=== PATIENT | male | born 1995 | race Caucasian/White ===

== ENCOUNTER 2021-05-18 16:46 | Inpatient (IN) | payer OTHER ==
[2021-05-18 20:50] VITALS: BMI 22.6
[2021-05-18] MEDS ORDERED: MAG HYDROX/AL HYDROX/SIMETH 30 ML UNIT-DOSE CUP PO PRN ×2 (21:31→23:02)
[2021-05-18] MEDS ORDERED: MAGNESIUM CITRATE 300 ML BOTTLE PO PRN ×2 (21:31→23:02)
[2021-05-18] MEDS ORDERED: MAGNESIUM HYDROX 2400MG/30ML ORAL SUSPENSION 30 ML CUP PO PRN ×2 (21:31→23:02)
[2021-05-18] MEDS ORDERED: P-EPHED 60MG/TRIPROLIDI 2.5MG TABLET PO PRN ×2 (21:31→23:02)
[2021-05-18] MEDS ORDERED: ACETAMINOPHEN 325 MG TABLET (FP) PO PRN ×3 (21:31→23:02)
[2021-05-18] MEDS ORDERED: hydrOXYzine PAMOATE 25 MG CAPSULE (FP) PO PRN (21:31)
[2021-05-18] MEDS ORDERED: IBUPROFEN 400 MG TABLET (FP) PO PRN ×2 (21:31→23:02)
[2021-05-18] MEDS ORDERED: BISMUTH SUBSALICYLATE 524 MG/30 ML PO PRN (21:31)
[2021-05-18] MEDS ORDERED: ONDANSETRON *ODT* 4 MG TABLET SL PRN (21:31)
[2021-05-18] MEDS ORDERED: MENTHOL/PHENOL 1 EACH UD MM PRN (21:31)
[2021-05-18] MEDS ORDERED: guaiFENesin 200 MG/10 ML 10 ML UNIT-DOSE CUPS PO PRN ×2 (21:31→23:02)
[2021-05-18] MEDS ORDERED: METHOCARBAMOL 500 MG TABLET PO PRN (21:31)
[2021-05-18] MEDS ORDERED: NICOTINE 10 MG CARTRIDGE (INHALER) IH PRN ×2 (21:31→23:02)
[2021-05-18] MEDS ORDERED: MELATONIN 5 MG TABLETS PO SCH (22:00)
[2021-05-18] MEDS ORDERED: THIAMINE HCL 100 MG TABLET (FP) PO SCH (22:00)
[2021-05-18] MEDS ORDERED: LOPERAMIDE HCL 2 MG CAPSULE PO PRN (23:02)
[2021-05-19] MEDS ORDERED: TUBERCULIN PPD 5 TU/0.1ML VIAL ID ONE ×2 (03:50→08:27)
[2021-05-19 07:22] VITALS: BP 111/75; PULSE 82; TEMP 97.6
[2021-05-19] MEDS: MELATONIN 5 MG TABLETS PO SCH ×2 (07:22→22:20)
[2021-05-19] MEDS ORDERED: PRENATAL VITAMINS W/ FOLIC ACID TABLET (FP) PO SCH (10:00)
[2021-05-19] MEDS: NICOTINE 14 MG/24 HOURS TOPICAL PATCH TD SCH (10:37)
[2021-05-19] MEDS: PRENATAL VITAMINS W/ FOLIC ACID TABLET (FP) PO SCH (10:38)
[2021-05-19 15:23] LABS: ALBUMIN 3.2 g/dl (3.4-5.0); BLOOD UREA NITROGEN 11.5 mg/dL (7-18)
[2021-05-19 15:24] LABS: CALCIUM 8.3 mg/dL (8.5-10.1)
[2021-05-19 15:25] LABS: BILIRUBIN,TOTAL 0.2 mg/dL (0.2-1); TOT PROT 7.1 g/dl (6.4-8.2)
[2021-05-19 15:26] LABS: CREATININE 0.7 mg/dL (0.55-1.3)
[2021-05-19 15:33] LABS: HEMATOCRIT 38.2 % (35.4-49); HEMOGLOBIN 13.4 GM/dL (11.7-16.9); MCH 33.2 pg (25.7-33.7); MEAN CELL VOLUME 94.7 fl (80-96); MEAN PLT VOLUME 9.4 fl (7.5-11.1); PLATELET COUNT 205 10^3/uL (134-434); RBC 4.04 M/mm3 (4.00-5.60); WHITE BLOOD COUNT 5.7 K/mm3 (4.0-10.0)
[2021-05-19] MEDS: THIAMINE HCL 100 MG TABLET (FP) PO SCH (22:20)
[2021-05-19] MEDS: DIVALPROEX SODIUM 250 MG TABLET E.C. PO SCH (22:20)
[2021-05-20] MEDS: DIVALPROEX SODIUM 250 MG TABLET E.C. PO SCH (11:28)
[2021-05-20] MEDS: ARIPiprazole 5 MG TABLET PO SCH (11:28)
[2021-05-20] MEDS: NICOTINE 14 MG/24 HOURS TOPICAL PATCH TD SCH (11:28)
[2021-05-20] MEDS: PRENATAL VITAMINS W/ FOLIC ACID TABLET (FP) PO SCH (11:29)
[2021-05-21] MEDS: THIAMINE HCL 100 MG TABLET (FP) PO SCH (00:47)
[2021-05-21] MEDS: MELATONIN 5 MG TABLETS PO SCH (00:47)
[2021-05-21] MEDS: DIVALPROEX SODIUM 250 MG TABLET E.C. PO SCH ×2 (00:47→11:16)
[2021-05-21] MEDS: PRENATAL VITAMINS W/ FOLIC ACID TABLET (FP) PO SCH (11:16)
[2021-05-21] MEDS: ARIPiprazole 5 MG TABLET PO SCH (11:16)
[2021-05-21] MEDS: NICOTINE 14 MG/24 HOURS TOPICAL PATCH TD SCH (11:16)
[2021-05-21] MEDS ORDERED: BICTEGRAV/EMTRICIT/TENOFOV (BIKTARVY) 50-200-25 MG TABLET PO SCH (12:00)
== END 2021-05-21 14:40 | disposition left against medical advice (07) | DRG 770 ==
LOC: YASAS 16:46 → Y5N 05-19 02:26
PROVIDERS: ADMIT Allergy & Immunology; ATTEND Allergy & Immunology
PROC: HZ42ZZZ Group Counseling for Substance Abuse Treatment, Cognitive-Behavioral (ICD-10-PCS; principal; 2021-05-19)
DX: F10.20 Alcohol dependence, uncomplicated (principal); F15.20 Other stimulant dependence, uncomplicated; F12.20 Cannabis dependence, uncomplicated; F25.9 Schizoaffective disorder, unspecified; F19.24 Other psychoactive substance dependence with psychoactive substance-induced mood disorder; F90.9 Attention-deficit hyperactivity disorder, unspecified type; F64.0 Transsexualism; Z21 Asymptomatic human immunodeficiency virus [HIV] infection status; G47.00 Insomnia, unspecified; Z86.19 Personal history of other infectious and parasitic diseases; Z91.14 Patient's other noncompliance with medication regimen; Z59.0 Homelessness
CPT/HCPCS: 36415; 80053; 85027; 93005; 93010; C9803; U0003; U0005

== ENCOUNTER 2021-08-31 09:12 | Inpatient (IN) | payer OTHER ==
[2021-08-31] MEDS ORDERED: ONDANSETRON *ODT* 4 MG TABLET SL PRN (09:42)
[2021-08-31] MEDS ORDERED: MAG HYDROX/AL HYDROX/SIMETH 30 ML UNIT-DOSE CUP PO PRN (09:42)
[2021-08-31] MEDS ORDERED: BISMUTH SUBSALICYLATE 262 MG/15 ML BTL PO PRN (09:42)
[2021-08-31] MEDS ORDERED: MAGNESIUM HYDROX 2400MG/30ML ORAL SUSPENSION 30 ML CUP PO PRN (09:42)
[2021-08-31] MEDS ORDERED: METHOCARBAMOL 500 MG TABLET PO PRN (09:42)
[2021-08-31] MEDS ORDERED: ACETAMINOPHEN 325 MG TABLET (FP) PO PRN ×2 (09:42)
[2021-08-31] MEDS ORDERED: IBUPROFEN 400 MG TABLET (FP) PO PRN (09:42)
[2021-08-31] MEDS ORDERED: MAGNESIUM CITRATE 300 ML BOTTLE PO PRN (09:42)
[2021-08-31] MEDS ORDERED: MENTHOL/PHENOL 1 EACH UD MM PRN (09:42)
[2021-08-31] MEDS ORDERED: NICOTINE 10 MG CARTRIDGE (INHALER) IH PRN (09:42)
[2021-08-31] MEDS ORDERED: chlordiazePOXIDE HCL 25 MG CAPSULE PO PRN (09:42)
[2021-08-31 09:53] VITALS: BMI 23.3
[2021-08-31] MEDS: chlordiazePOXIDE HCL 25 MG CAPSULE PO SCH ×3 (10:54→22:51)
[2021-08-31] MEDS: PRENATAL VITAMINS W/ FOLIC ACID TABLET (FP) PO SCH (10:55)
[2021-08-31] MEDS: hydrOXYzine PAMOATE 25 MG CAPSULE (FP) PO SCH ×4 (10:55→22:53)
[2021-08-31 13:31] LABS: HEMATOCRIT 38.6 % (35.4-49); HEMOGLOBIN 13.5 GM/dL (11.7-16.9); MCH 33.7 pg (25.7-33.7); MCHC 35.1 g/dl (32.0-35.9); MEAN CELL VOLUME 96.2 fl (80-96); MEAN PLT VOLUME 8.8 fl (7.5-11.1); PLATELET COUNT 214 10^3/uL (134-434); RBC 4.01 M/mm3 (4.00-5.60); RDW 13.2 % (11.9-15.9); WHITE BLOOD COUNT 3.8 K/mm3 (4.0-10.0)
[2021-08-31 13:49] LABS: ALBUMIN 3.6 g/dl (3.4-5.0); CALCIUM 8.7 mg/dL (8.5-10.1)
[2021-08-31 13:50] LABS: BLOOD UREA NITROGEN 8.4 mg/dL (7-18)
[2021-08-31 13:52] LABS: TOT PROT 7.6 g/dl (6.4-8.2)
[2021-08-31 13:55] LABS: BILIRUBIN,TOTAL 0.6 mg/dL (0.2-1)
[2021-08-31] MEDS: DIVALPROEX SODIUM 250 MG TABLET E.C. PO SCH (22:51)
[2021-08-31] MEDS: MELATONIN 5 MG TABLETS PO SCH (22:51)
[2021-08-31] MEDS: THIAMINE HCL 100 MG TABLET (FP) PO SCH (22:51)
[2021-09-01] MEDS: chlordiazePOXIDE HCL 25 MG CAPSULE PO SCH ×4 (07:41→22:05)
[2021-09-01] MEDS: hydrOXYzine PAMOATE 25 MG CAPSULE (FP) PO SCH ×5 (07:41→22:05)
[2021-09-01] MEDS ORDERED: BICTEGRAV/EMTRICIT/TENOFOV (BIKTARVY) 50-200-25 MG TABLET PO SCH (10:00)
[2021-09-01] MEDS: ARIPiprazole 5 MG TABLET PO SCH (10:49)
[2021-09-01] MEDS: DIVALPROEX SODIUM 250 MG TABLET E.C. PO SCH ×2 (10:49→22:05)
[2021-09-01] MEDS: PRENATAL VITAMINS W/ FOLIC ACID TABLET (FP) PO SCH (10:49)
[2021-09-01] MEDS: BICTEGRAV/EMTRICIT/TENOFOV (BIKTARVY) 50-200-25 MG TABLET PO SCH (18:25)
[2021-09-01] MEDS: MELATONIN 5 MG TABLETS PO SCH (22:05)
[2021-09-01] MEDS: THIAMINE HCL 100 MG TABLET (FP) PO SCH (22:05)
[2021-09-02] MEDS: chlordiazePOXIDE HCL 25 MG CAPSULE PO SCH ×4 (05:26→22:04)
[2021-09-02] MEDS: hydrOXYzine PAMOATE 25 MG CAPSULE (FP) PO SCH ×5 (05:26→22:03)
[2021-09-02] MEDS: DIVALPROEX SODIUM 250 MG TABLET E.C. PO SCH ×2 (10:40→22:03)
[2021-09-02] MEDS: ARIPiprazole 5 MG TABLET PO SCH (10:42)
[2021-09-02] MEDS: PRENATAL VITAMINS W/ FOLIC ACID TABLET (FP) PO SCH (10:42)
[2021-09-02] MEDS: BICTEGRAV/EMTRICIT/TENOFOV (BIKTARVY) 50-200-25 MG TABLET PO SCH (10:43)
[2021-09-02] MEDS ORDERED: BICTEGRAV/EMTRICIT/TENOFOV (BIKTARVY) 50-200-25 MG TABLET PO SCH (18:00)
[2021-09-02] MEDS: MELATONIN 5 MG TABLETS PO SCH (22:03)
[2021-09-02] MEDS: THIAMINE HCL 100 MG TABLET (FP) PO SCH (22:03)
[2021-09-03] MEDS ORDERED: chlordiazePOXIDE HCL 10 MG CAPSULE PO PRN
[2021-09-03] MEDS: chlordiazePOXIDE HCL 10 MG CAPSULE PO SCH ×2 (06:10→10:10)
[2021-09-03] MEDS: hydrOXYzine PAMOATE 25 MG CAPSULE (FP) PO SCH ×2 (07:25→10:10)
[2021-09-03] MEDS: PRENATAL VITAMINS W/ FOLIC ACID TABLET (FP) PO SCH (10:08)
[2021-09-03] MEDS: DIVALPROEX SODIUM 250 MG TABLET E.C. PO SCH (10:08)
[2021-09-03] MEDS: ARIPiprazole 5 MG TABLET PO SCH (10:09)
[2021-09-03 13:30] VITALS: BP 125/83; PULSE 100; TEMP 98.2
[2021-09-04] MEDS ORDERED: chlordiazePOXIDE HCL 10 MG CAPSULE PO SCH (05:00)
[2021-09-05] MEDS ORDERED: chlordiazePOXIDE HCL 10 MG CAPSULE PO ONE (05:00)
== END 2021-09-03 15:44 | disposition left against medical advice (07) | DRG 770 ==
LOC: YASAS 09:12 → Y3N 10:10
PROVIDERS: ADMIT Allergy & Immunology; ATTEND Allergy & Immunology
PROC: HZ2ZZZZ Detoxification Services for Substance Abuse Treatment (ICD-10-PCS; principal; 2021-08-31)
DX: F12.20 Cannabis dependence, uncomplicated (principal); F15.20 Other stimulant dependence, uncomplicated; F20.9 Schizophrenia, unspecified; F90.9 Attention-deficit hyperactivity disorder, unspecified type; F31.9 Bipolar disorder, unspecified; F19.24 Other psychoactive substance dependence with psychoactive substance-induced mood disorder; F64.9 Gender identity disorder, unspecified; Z21 Asymptomatic human immunodeficiency virus [HIV] infection status; R76.8 Other specified abnormal immunological findings in serum; G47.00 Insomnia, unspecified; Z87.890 Personal history of sex reassignment; Z98.82 Breast implant status; Z88.8 Allergy status to other drugs, medicaments and biological substances; Z91.14 Patient's other noncompliance with medication regimen; Z86.19 Personal history of other infectious and parasitic diseases; Z91.51 Personal history of suicidal behavior; Z56.0 Unemployment, unspecified; Z59.01 Sheltered homelessness
CPT/HCPCS: 36415; 80053; 80164; 85027; 86593; 86780; C9803; U0003; U0005